=== PATIENT | male | born 2000 | race Two or more races ===

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

== ENCOUNTER 2022-04-30 17:13 | Emergency (ER) | payer SELFPAY ==
[~2022-04-30] VITALS: Ht 180.3 cm; Wt 121.0 kg
[2022-04-30 17:27] VITALS: BP 132/79
[2022-05-01] MEDS ORDERED: IBUPROFEN 800 MG TAB PO ONE
[2022-05-01] MEDS ORDERED: TETANUS-DIPTH-ACEL PERTUSSIS 0.5ML SYR Tdap IM ONE (00:15)
== END 2022-05-01 00:25 | disposition home or self-care (01) ==
LOC: ER 17:13
DX: S01.81XA Laceration without foreign body of other part of head, initial encounter (principal); W01.0XXA Fall on same level from slipping, tripping and stumbling without subsequent striking against object, initial encounter; Y93.89 Activity, other specified; Y92.89 Other specified places as the place of occurrence of the external cause; Y99.8 Other external cause status
CPT/HCPCS: 12013; 90471; 90715

== ENCOUNTER 2023-01-22 20:49 | Emergency (ER) | payer SELFPAY ==
[~2023-01-22] VITALS: Ht 177.8 cm; Wt 122.7 kg
[2023-01-22 21:47] VITALS: BP 132/70
== END 2023-01-23 02:37 | disposition left against medical advice (07) ==
LOC: ER 20:56
DX: S61.411A Laceration without foreign body of right hand, initial encounter (principal); Z53.21 Procedure and treatment not carried out due to patient leaving prior to being seen by health care provider; W45.8XXA Other foreign body or object entering through skin, initial encounter; Y93.89 Activity, other specified; Y92.89 Other specified places as the place of occurrence of the external cause; Y99.8 Other external cause status